=== PATIENT | female | born 1965 | race African-American/Black ===

== ENCOUNTER 2017-03-26 11:45 | Emergency (ER) | payer SELFPAY ==
[~2017-03-26] VITALS: Ht 165.1 cm; Wt 85.0 kg
[~2017-03-26 11:45] MED LIST: ALBUTEROL S2.5 MG/.5 IN; AMOXICILLIN500 MG PO; FLEXERIL OR; HOME NEBULIZER; LORTAB5 PO; MEDDOSEPAK OR; NAPROSYN500 MG PO; NO; NO MEDS; PROAIR HFA IN; TYLENOL500 MG OR; VICOPROFEN PO; ZITHROMAX250 MG OR; ZPAK PO
[2017-03-26] MEDS ORDERED: MEDDOSEPAK PO (14:21)
[2017-03-26] MEDS ORDERED: FLEXERIL PO (14:21)
[2017-03-26 14:30] VITALS: BP 139/74
== END 2017-03-26 14:30 | disposition home or self-care (01) | DRG 93 ==
LOC: ED 11:45
DX: G89.29 Other chronic pain (principal); M25.552 Pain in left hip; M54.5 Low back pain

== ENCOUNTER 2017-05-11 20:24 | Emergency (ER) | payer OTHER ==
[~2017-05-11] VITALS: Ht 165.1 cm; Wt 85.2 kg
[~2017-05-11 20:24] MED LIST changes: +FLEXERIL PO; +MEDDOSEPAK PO
[2017-05-11] MEDS ORDERED: KEFLEX500 M1 PO (21:57)
[2017-05-11] MEDS ORDERED: ROBITUSSIN AC10 ML PO (21:57)
[2017-05-11 22:12] VITALS: BP 124/94
== END 2017-05-11 22:14 | disposition home or self-care (01) | DRG 153 ==
LOC: ED 20:24
DX: J06.9 Acute upper respiratory infection, unspecified (principal); G45.9 Transient cerebral ischemic attack, unspecified; J45.909 Unspecified asthma, uncomplicated; E11.9 Type 2 diabetes mellitus without complications

== ENCOUNTER 2017-11-19 15:36 | Emergency (ER) | payer OTHER ==
[~2017-11-19] VITALS: Ht 165.1 cm; Wt 85.0 kg
[~2017-11-19 15:36] MED LIST changes: +KEFLEX500 M1 PO; +ROBITUSSIN AC10 ML PO
[2017-11-19] MEDS ORDERED: TRAMADOL HYDROC50 MG PO ×2 (15:55→16:31)
[2017-11-19] MEDS ORDERED: EC-NAPROSYN500 MG PO ×2 (15:55→16:31)
[2017-11-19] MEDS ORDERED: SIMVASTATIN10 MG PO (16:27)
[2017-11-19] MEDS ORDERED: METFORMIN500 M2 PO (16:27)
[2017-11-19] MEDS ORDERED: NEURONTIN300 MG PO (16:28)
[2017-11-19 16:35] VITALS: BP 122/75
== END 2017-11-19 17:23 | disposition home or self-care (01) | DRG 563 ==
LOC: ED 15:36
PROC: 2W3RX1Z Immobilization of Left Lower Leg using Splint (ICD-10-PCS; principal; 2017-11-19)
DX: S82.62XA Displaced fracture of lateral malleolus of left fibula, initial encounter for closed fracture (principal); E11.9 Type 2 diabetes mellitus without complications; X50.0XXA Overexertion from strenuous movement or load, initial encounter; Y92.009 Unspecified place in unspecified non-institutional (private) residence as the place of occurrence of the external cause

== ENCOUNTER 2018-11-22 19:42 | Emergency (ER) | payer OTHER ==
[~2018-11-22] VITALS: Ht 165.1 cm; Wt 89.8 kg
[~2018-11-22 19:42] MED LIST changes: +EC-NAPROSYN500 MG PO; +METFORMIN500 M2 PO; +NEURONTIN300 MG PO; +SIMVASTATIN10 MG PO; +TRAMADOL HYDROC50 MG PO
[2018-11-22] MEDS ORDERED: TESSALON PER100 MG PO (21:22)
[2018-11-22] MEDS ORDERED: VENTOLIN HFA IN (21:22)
[2018-11-22 21:26] VITALS: BP 113/78
== END 2018-11-22 21:33 | disposition home or self-care (01) ==
LOC: ED 19:42
DX: R05 Cough (principal)

== ENCOUNTER 2019-04-08 09:30 | Emergency (ER) | payer OTHER ==
[~2019-04-08] VITALS: Ht 165.1 cm; Wt 90.0 kg
[~2019-04-08 09:30] MED LIST changes: +TESSALON PER100 MG PO; +VENTOLIN HFA IN
[2019-04-08] MEDS ORDERED: VISTARIL25 MG PO (10:10)
[2019-04-08] MEDS ORDERED: PERMETHRIN5 % EX (10:10)
[2019-04-08 10:14] VITALS: BP 117/92
== END 2019-04-08 10:18 | disposition home or self-care (01) ==
LOC: ED 09:30
DX: R21 Rash and other nonspecific skin eruption (principal); L29.9 Pruritus, unspecified; E11.9 Type 2 diabetes mellitus without complications

== ENCOUNTER 2020-03-12 | Emergency (ER) | payer OTHER ==
[~2020-03-12] MED LIST changes: +CELEBREX200 M1 PO; +CELEXA20 M1 PO; +HALOPERIDOL0.5 MG PO; +HYDROXYZINE HCL25 M1 PO; +PERMETHRIN5 % EX; +PROVENTIL108 MCG/AC PO; +VISTARIL25 MG PO
[2020-03-12] MEDS ORDERED: MOTRIN400 MG PO ×2 (12:38)
== END 2020-03-12 12:45 | disposition home or self-care (01) ==
DX: M25.571 Pain in right ankle and joints of right foot (principal); E11.9 Type 2 diabetes mellitus without complications; Z79.84 Long term (current) use of oral hypoglycemic drugs

== ENCOUNTER 2020-06-02 10:09 | Observation (INO) | payer OTHER ==
[~2020-06-02] VITALS: Ht 165.1 cm; Wt 98.0 kg
[~2020-06-02 10:09] MED LIST changes: +MOTRIN400 MG PO
--- NOTE | 2020-06-02 10:19 | NUR ---
PT TO ROOM VIA WC FOR BEDSIDE TRIAGE
[2020-06-02 10:33] LABS: HEMATOCRIT 37.4 % (37.0-47.0); HEMOGLOBIN 12.7 g/dl (12.0-16.0); IMMATURE GRANULOCYTES 0.2 % (0.0-5.0); MEAN CELL VOLUME 77.8 fL CALC (80.0-100.0); MEAN CORPUSCULAR HGB 26.4 pG CALC (26.0-32.0); NEUT# 2.68 thou/uL (2.00-7.15); RED BLOOD COUNT 4.81 mill/uL (4.20-5.60); RED CELL DISTRI WIDTH 15.1 % (11.5-15.5)
[2020-06-02 10:48] LABS: ALBUMIN 4.3 g/dL (3.2-5.0); ALKALINE PHOSPHATASE 164 u/l (38-126); ANION GAP 11 (6-22 (CALC)); BILIRUBIN, TOTAL 0.5 mg/dL (0.0-1.4); BUN 18 mg/dL (7-17); BUN/CREATININE RATIO 25 (12-20 (CALC)); CARBON DIOXIDE 25 mmol/l (22-30); CHLORIDE 104 mmol/l (95-108); CREATININE 0.7 mg/dL (0.5-1.0); GFR > 60 ML/MIN (>=60 (CALC)); GFR FOR AFR.AMER. > 60 ML/MIN (>=60 (CALC)); POTASSIUM 4.1 mmol/l (3.5-5.1); SGOT/AST 26 u/l (14-36); SODIUM 135 mmol/l (137-146); TOTAL PROTEIN 8.6 g/dL (6.3-8.2)
--- NOTE | 2020-06-02 11:30 | NUR ---
PT AWARE OF PLANNED ADMISSION RELATED TO CHANGES ON EKG PER BUT THAT WE ARE ALSO AWAITING OUTSTANDING TEST RESULTS WELL, RESTING COMFORTABLE AT THIS TIME
--- NOTE | 2020-06-02 12:20 | NUR ---
PT RESTING WITH NO S/S OF DISTRESS CALL KEON AGUILAR REACH AWARE OF PLANNED ADMISSION
--- NOTE | 2020-06-02 13:14 | NUR ---
REPORT CALLED TO ASHLEE JIMENEZ ON MED SURG
--- NOTE | 2020-06-02 13:38 | NUR ---
TELE ATTACHED AND PT TRANSPORTED TO MED SURG VIA WHEELCHAIR ON TELE [address], ALL BELONGINGS SENT WITH PT.
[2020-06-02 13:45] VITALS: BP 136/81
--- NOTE | 2020-06-02 14:16 | NUR ---
PT ARRIVED TO FLOOR @ 1339 VIA WC ACCOMPANIED BY BARBARA NEFF. PT IS ALERT AND ORIENTED. AMBULATES WITH STEADY GAIT. DENIES CHEST PAIN AT THIS TIME. REPORTS CHEST PAIN BEGAN LAST NIGHT AT HOME, WAS MIDSTERNAL, RADIATING TO AND DOWN LEFT ARM. PAIN WAS MODERATE 05/26. ASSOCIATED SYMPTOMS OF SHORTNESS OF BREATH ADN DRY COUGH. NO NAUSEA/VOMTING, DIARRHEA, OR FEVER. NO TREATMENT WAS ATTEMPTED FOR PAIN AT HOME. REPORTS PAIN RELIEF IN ED AFTER NITRO ADMINISTRATION. CURRENTLY NO SOB OR COUGH. LUNGS CLEAR. S1, S2, REGULAR, NO EXTRA HEART SOUNDS. NO EDEMA NOTED. BOWEL SOUNDS ACTIVE, REPORTS LAST BM 05/27 (WEEKLY BM'S IS NORMAL PER PT.) NO SKIN ALTERATIONS. PT EDUCATED ON PLAN OF CARE, ROOM AND EQUIPMENT, CALL LIGHT, AND REPORTING OF CONCERNS. PT STATES UNDERSTANDING OF INFORMATION.
[2020-06-02 15:25] VITALS: BP 129/83
--- NOTE | 2020-06-02 16:33 | NUR ---
PT SITTING UPRIGHT IN BED. DENIES PAIN. EAGER FOR DINNER MEAL. CALL LIGHT WITHIN REACH.
[2020-06-02 18:56] VITALS: BP 121/73
--- NOTE | 2020-06-02 19:00 | NUR ---
REPORT RECEIVED FROM Doris MCNAIR RN; PT WATCHING TV; NO COMPLAINTS OR CONCERNS VOICED; CALL HERBERT WITHIN REACH; WILL CONTINUE TO MONITOR.
--- NOTE | 2020-06-02 20:20 | NUR ---
PT RESTING WITH EYES CLOSED; AROUSED EASILY TO VERBAL STIMULI; PT A/O X3; DENIES PAIN OR DISCOMFORT; TELE MONITOR IN PLACE, SR 81, PER ER TELE MONITORING; #[address] NO REDNESS OR EDEMA NOTED; PT OREINTED TO ROOM AND CALL SYSTEM; CALL HERBERT WITHIN REACH; WILL CONTINUE TO MONITOR.
--- NOTE | 2020-06-02 21:15 | NUR ---
ACCUCHECK 248, NOVOLOG SLIDING SCALE PER ORDER; CALL HERBERT WITHIN REACH; WILL CONTINUE TO MONITOR.
[2020-06-02 23:52] VITALS: BP 112/78
--- NOTE | 2020-06-03 02:03 | NUR ---
PT RESTING WITH EYES CLOSED; GUARDS X2 AT BEDSIDE; TELE MONITOR IN PLACE; CALL HERBERT WITHIN REACH; WILL CONTINUE TO MONITOR.
[2020-06-03 05:06] VITALS: BP 119/85
--- NOTE | 2020-06-03 05:06 | NUR ---
pt arouses easily upon entering room; vital signs obtained; pt denies pain or discomfort; call andrews within reach will continue to monitor.
[2020-06-03 05:37] LABS: CHOLESTEROL HDL RATIO 2.7 (<4.4 (CALC)); MAGNESIUM 2.1 mg/dL (1.6-2.3)
--- NOTE | 2020-06-03 08:04 | NUR ---
ASSESSMENT DONE. PT IS A&O X3. RESPS EVEN AND UNLABORED. PT DENIES ANY PAIN AT THIS TIME. TELE IN PLACE. PT DENIES NEEDS. CALL LIGHT IN REACH.
[2020-06-03 08:16] VITALS: BP 119/86
[2020-06-03 11:33] VITALS: BP 119/86
--- NOTE | 2020-06-03 12:06 | NUR ---
PT IS EATING HER LUNCH WITH NO S/S OF DISTRESS NOTED. PT STATED THAT PAIN MEDICATION HELPED FOR HER LEGS. PT DENIES ANY NEEDS AT THIS TIME. CALL LIGHT IN REACH.
--- NOTE | 2020-06-03 13:57 | NUR ---
Discharge instructions given. Patient verbalizes understanding of same. Discharged in stable condition via Wheelchair to Home with staff. All belongings sent with pt.
== END 2020-06-03 13:57 | disposition home or self-care (01) ==
LOC: ED 10:09 → ED-I 11:07 → ED 11:43 → ED-I 11:44 → MS2 12:10
PROVIDERS: Family Medicine; ADMIT Internal Medicine; ATTEND Internal Medicine
DX: R07.9 Chest pain, unspecified (principal); E11.9 Type 2 diabetes mellitus without complications; E78.5 Hyperlipidemia, unspecified; Z86.73 Personal history of transient ischemic attack (TIA), and cerebral infarction without residual deficits; Z79.84 Long term (current) use of oral hypoglycemic drugs; Z23 Encounter for immunization; Z20.828 Contact with and (suspected) exposure to other viral communicable diseases
CPT/HCPCS: G0378

== ENCOUNTER 2021-07-25 22:56 | Emergency (ER) | payer OTHER ==
[~2021-07-25] VITALS: Ht 165.1 cm; Wt 90.0 kg
[2021-07-25 23:19] VITALS: BP 117/88
[2021-07-25 23:53] LABS: HEMATOCRIT 40.8 % (37.0-47.0); IMMATURE GRANULOCYTES 0.2 % (0.0-5.0); MEAN CELL VOLUME 78.3 fL CALC (80.0-100.0); MEAN CORPUSCULAR HGB 26.9 pG CALC (26.0-32.0); MEAN CORPUSCULAR HGB CONC 34.3 g/dL CAL (32.0-36.0); NEUT# 2.11 thou/uL (2.00-7.15); RED BLOOD COUNT 5.21 mill/uL (4.20-5.60); RED CELL DISTRI WIDTH 14.9 % (11.5-15.5)
[2021-07-25 23:54] LABS: URINE BLOOD DIPSTICK TRACE-INTACT (NEGATIVE); URINE COLOR YELLOW; URINE GLUCOSE - DIPSTICK NEGATIVE (NEGATIVE); URINE KETONE TRACE mg/dL (NEGATIVE); URINE PROTEIN - DIPSTICK 100 mg/dL (NEG-TRACE); URINE SPECIFIC GRAVITY 1.025; URINE UROBILINOGEN - DIPSTICK 0.2 E.U./dL (0.2)
[2021-07-25 23:55] LABS: URINE BILIRUBIN - DIPSTICK NEGATIVE (NEGATIVE); URINE LEUK ESTERASE SMALL (NEGATIVE); URINE NITRITE - DIPSTICK NEGATIVE (Negative)
[2021-07-26 00:13] LABS: ALBUMIN 4.1 g/dL (3.2-5.0); ALKALINE PHOSPHATASE 147 u/l (38-126); AMYLASE 62 u/l (30-110); BILIRUBIN, TOTAL 0.7 mg/dL (0.0-1.4); BUN 13 mg/dL (7-17); BUN/CREATININE RATIO 12 (12-20 (CALC)); CHLORIDE 96 mmol/l (95-108); CREATININE 1.1 mg/dL (0.5-1.0); GFR 51 ML/MIN (>=60 (CALC)); GFR FOR AFR.AMER. > 60 ML/MIN (>=60 (CALC)); LIPASE 55 u/l (23-300); POTASSIUM 4.3 mmol/l (3.5-5.1); SGOT/AST 30 u/l (14-36); SODIUM 134 mmol/l (137-146); TOTAL PROTEIN 8.1 g/dL (6.3-8.2)
[2021-07-26 00:20] LABS: URINE BACTERIA MANY hpf; URINE SQUAMOUS EPITHELIAL CELL FEW EPI/hpf (0-FEW)
[2021-07-26 00:29] LABS: ANION GAP 11 (6-22 (CALC)); CARBON DIOXIDE 31 mmol/l (22-30)
[2021-07-26] MEDS ORDERED: BACTRIM DS1 TAB PO (00:36)
[2021-07-26] MEDS ORDERED: IMODIUM2 MG PO (00:36)
== END 2021-07-26 02:32 | disposition home or self-care (01) ==
LOC: ED 22:56
PROVIDERS: Family Medicine
DX: U07.1 COVID-19 (principal); N39.0 Urinary tract infection, site not specified; E11.9 Type 2 diabetes mellitus without complications; I10 Essential (primary) hypertension; Z86.73 Personal history of transient ischemic attack (TIA), and cerebral infarction without residual deficits; Z79.84 Long term (current) use of oral hypoglycemic drugs

== ENCOUNTER 2022-04-08 01:09 | Emergency (ER) | payer OTHER ==
[~2022-04-08] VITALS: Ht 165.1 cm; Wt 88.0 kg
[~2022-04-08 01:09] MED LIST changes: +BACTRIM DS1 TAB PO; +IMODIUM2 MG PO
[2022-04-08 01:21] VITALS: BP 116/81
[2022-04-08 01:30] VITALS: BP 111/80
[2022-04-08 02:00] VITALS: BP 109/77
[2022-04-08] MEDS ORDERED: TORADOL PO (02:10)
[2022-04-08 02:20] VITALS: BP 109/77
== END 2022-04-08 02:27 | disposition home or self-care (01) ==
LOC: ED 01:09
DX: S80.02XA Contusion of left knee, initial encounter (principal); S80.212A Abrasion, left knee, initial encounter; E11.9 Type 2 diabetes mellitus without complications; I10 Essential (primary) hypertension; Z86.73 Personal history of transient ischemic attack (TIA), and cerebral infarction without residual deficits; Z79.84 Long term (current) use of oral hypoglycemic drugs; V18.0XXA Pedal cycle driver injured in noncollision transport accident in nontraffic accident, initial encounter; Y93.55 Activity, bike riding

== ENCOUNTER 2022-07-30 20:38 | Emergency (ER) | payer OTHER ==
[~2022-07-30] VITALS: Ht 165.1 cm; Wt 84.5 kg
[~2022-07-30 20:38] MED LIST changes: +TORADOL PO
[2022-07-30] MEDS ORDERED: NAPROXEN500 MG PO (22:55)
[2022-07-31 05:56] VITALS: BP 136/92
== END 2022-07-31 10:11 | disposition home or self-care (01) ==
LOC: ED 20:38
DX: S13.9XXA Sprain of joints and ligaments of unspecified parts of neck, initial encounter (principal); M25.512 Pain in left shoulder; E11.9 Type 2 diabetes mellitus without complications; I10 Essential (primary) hypertension; E78.00 Pure hypercholesterolemia, unspecified; V13.4XXA Pedal cycle driver injured in collision with car, pick-up truck or van in traffic accident, initial encounter; Z86.73 Personal history of transient ischemic attack (TIA), and cerebral infarction without residual deficits

== ENCOUNTER 2023-03-01 18:30 | Emergency (ER) | payer OTHER ==
[2023-03-01] VITALS (9 sets, daily range): BP systolic 114–125; BP diastolic 74–84
[~2023-03-01] VITALS: Ht 165.1 cm; Wt 84.8 kg
[~2023-03-01 18:30] MED LIST changes: +NAPROXEN500 MG PO
[2023-03-01 22:04] LABS: BASO% 0.2 % (0-3); EOS% 0.1 % (0-8); HEMATOCRIT 38.3 % (37.0-47.0); HEMOGLOBIN 13.2 g/dl (12.0-16.0); IMMATURE GRANULOCYTES 0.2 % (0.0-5.0); LYMPH% 5.3 % (15-41); MEAN CELL VOLUME 77.1 fL CALC (80.0-100.0); MEAN CORPUSCULAR HGB 26.6 pG CALC (26.0-32.0); MEAN CORPUSCULAR HGB CONC 34.5 g/dL CAL (32.0-36.0); NEUT# 7.01 thou/uL (2.00-7.15); NEUT% 85.2 % (42-76); RED BLOOD COUNT 4.97 mill/uL (4.20-5.60); RED CELL DISTRI WIDTH 14.9 % (11.5-15.5)
[2023-03-01 22:14] LABS: ALBUMIN 4.4 g/dL (3.2-5.0); ALKALINE PHOSPHATASE 168 u/l (38-126); ANION GAP 13 (6-22 (CALC)); BILIRUBIN, TOTAL 0.7 mg/dL (0.02-1.3); BUN 10 mg/dL (7-17); BUN/CREATININE RATIO 10 (12-20 (CALC)); CARBON DIOXIDE 25 mmol/l (22-30); CHLORIDE 102 mmol/l (95-108); CREATININE 1.1 mg/dL (0.5-1.0); GFR FOR AFR.AMER. > 60 ML/MIN (>=60 (CALC)); GFR OTHER RACES 51 ML/MIN (>=60 (CALC)); POTASSIUM 3.8 mmol/l (3.5-5.1); SGOT/AST 30 u/l (14-36); SODIUM 136 mmol/l (137-146); TOTAL PROTEIN 8.1 g/dL (6.3-8.2)
[2023-03-01] MEDS ORDERED: PAXLOVID 10 X 11 TAB PO (23:55)
[2023-03-02] VITALS: BP 112/76
[2023-03-02 00:03] VITALS: BP 112/76
== END 2023-03-02 00:12 | disposition home or self-care (01) ==
LOC: ED 18:30
PROVIDERS: Emergency Medicine
DX: U07.1 COVID-19 (principal); R50.9 Fever, unspecified; R05.9 Cough, unspecified; R51.9 Headache, unspecified; M79.10 Myalgia, unspecified site; I10 Essential (primary) hypertension; E11.9 Type 2 diabetes mellitus without complications; E78.00 Pure hypercholesterolemia, unspecified; Z86.73 Personal history of transient ischemic attack (TIA), and cerebral infarction without residual deficits; Z79.84 Long term (current) use of oral hypoglycemic drugs

== ENCOUNTER 2024-06-22 19:16 | Emergency (ER) | payer OTHER ==
[~2024-06-22] VITALS: Ht 165.1 cm; Wt 87.0 kg
[~2024-06-22 19:16] MED LIST changes: +PAXLOVID 10 X 11 TAB PO
[2024-06-22] MEDS ORDERED: SODIUM CHLORIDE 0.9% 1,000 ML IV STA (19:55)
[2024-06-22] MEDS ORDERED: PROMETHAZINE HCL 25 MG/ML AMP IV ONE (20:00)
[2024-06-22 20:22] LABS: BASO% 0.6 % (0-3); EOS% 1.7 % (0-8); HEMOGLOBIN 13.5 g/dl (12.0-16.0); IMMATURE GRANULOCYTES 0.2 % (0.0-5.0); LYMPH% 46.9 % (15-41); MEAN CELL VOLUME 80.4 fL CALC (80.0-100.0); MEAN CORPUSCULAR HGB 27.3 pG CALC (26.0-32.0); MONO% 8.9 % (2-13); NEUT# 1.96 thou/uL (2.00-7.15); NEUT% 41.7 % (42-76); RED BLOOD COUNT 4.94 mill/uL (4.20-5.60); RED CELL DISTRI WIDTH 14.7 % (11.5-15.5)
[2024-06-22 20:23] LABS: URINE BILIRUBIN - DIPSTICK Negative (NEGATIVE); URINE BLOOD DIPSTICK Trace-lysed (NEGATIVE); URINE GLUCOSE - DIPSTICK Negative (NEGATIVE); URINE KETONE Negative (NEGATIVE); URINE NITRITE - DIPSTICK Negative (Negative); URINE PH 5.5 (4.5-8.0); URINE PROTEIN - DIPSTICK Negative (NEG-TRACE); URINE SPECIFIC GRAVITY >=1.030; URINE UROBILINOGEN - DIPSTICK 0.2 E.U./dL (0.2)
[2024-06-22 20:24] LABS: HEMATOCRIT 39.7 % (37.0-47.0); URINE COLOR Yellow; URINE LEUK ESTERASE Small (NEGATIVE)
[2024-06-22 20:32] LABS: URINE BACTERIA FEW hpf; URINE SQUAMOUS EPITHELIAL CELL FEW EPI/hpf (0-FEW)
[2024-06-22 20:37] LABS: ALBUMIN 4.5 g/dL (3.2-5.0); BILIRUBIN, TOTAL 0.7 mg/dL (0.02-1.3); POTASSIUM 3.7 mmol/l (3.5-5.1); TOTAL PROTEIN 8.4 g/dL (6.3-8.2)
[2024-06-22 21:16] VITALS: BP 138/119
[2024-06-22 21:30] VITALS: BP 138/119
== END 2024-06-22 21:48 | disposition home or self-care (01) ==
LOC: ED 19:16
PROVIDERS: Family Medicine
DX: R11.2 Nausea with vomiting, unspecified (principal); R53.83 Other fatigue; R51.9 Headache, unspecified; E11.9 Type 2 diabetes mellitus without complications; I10 Essential (primary) hypertension; E78.5 Hyperlipidemia, unspecified; Z86.73 Personal history of transient ischemic attack (TIA), and cerebral infarction without residual deficits; Z79.4 Long term (current) use of insulin; Z79.84 Long term (current) use of oral hypoglycemic drugs; Z20.822 Contact with and (suspected) exposure to COVID-19; Z91.190 Patient's noncompliance with other medical treatment and regimen due to financial hardship

== ENCOUNTER 2024-10-25 00:09 | Emergency (ER) | payer OTHER ==
[~2024-10-25] VITALS: Ht 165.1 cm; Wt 75.0 kg
[2024-10-25] MEDS ORDERED: methylPREDNISolone SODIUM SUCC 125 MG/2 ML SDV IM ONE (00:30)
[2024-10-25] MEDS ORDERED: KETOROLAC TROMETHAMINE 30 MG/ML SDV IM ONE (00:30)
[2024-10-25] MEDS ORDERED: traMADol HCL 50 MG/TAB PO ONE (00:30)
[2024-10-25 00:45] VITALS: BP 102/70
[2024-10-25 01:00] VITALS: BP 120/89
[2024-10-25 01:15] VITALS: BP 143/86
[2024-10-25] MEDS ORDERED: VOLTAREN - GENE75 MG PO (01:19)
[2024-10-25 01:21] VITALS: BP 143/86
== END 2024-10-25 02:09 | disposition home or self-care (01) ==
LOC: ED 00:09
DX: S46.912A Strain of unspecified muscle, fascia and tendon at shoulder and upper arm level, left arm, initial encounter (principal); E11.9 Type 2 diabetes mellitus without complications; I10 Essential (primary) hypertension; E78.00 Pure hypercholesterolemia, unspecified; Z86.73 Personal history of transient ischemic attack (TIA), and cerebral infarction without residual deficits; Z79.84 Long term (current) use of oral hypoglycemic drugs; X50.0XXA Overexertion from strenuous movement or load, initial encounter